=== PATIENT | female | born 1930 | race Caucasian/White ===

== ENCOUNTER 2017-01-14 14:08 | Emergency (ER) | payer OTHER | END 2017-01-14 16:51 | disposition critical access hospital (66) | LOC: ER 14:08 | DX: I13.0 Hypertensive heart and chronic kidney disease with heart failure and stage 1 through stage 4 chronic kidney disease, or unspecified chronic kidney disease (principal); N18.9 Chronic kidney disease, unspecified; I50.9 Heart failure, unspecified; I83.018 Varicose veins of right lower extremity with ulcer other part of lower leg; I25.2 Old myocardial infarction; E78.00 Pure hypercholesterolemia, unspecified; Z79.82 Long term (current) use of aspirin; Z79.899 Other long term (current) drug therapy | CPT/HCPCS: 36415; 96361; 96374; J1940 ==

== ENCOUNTER 2017-01-14 14:08 | Inpatient (IN) | payer OTHER ==
[~2017-01-14] VITALS: Ht 162.6 cm; Wt 49.4 kg
[2017-01-18] MEDS ORDERED: TOPROL XL50 MG PO (15:03)
[2017-01-18] MEDS ORDERED: PRAVACHOL20 MG PO (15:03)
[2017-01-18] MEDS ORDERED: ASPIR 8181 MG PO (15:03)
[2017-01-18] MEDS ORDERED: VITAMIN B-121000 MCG PO (15:04)
[2017-01-18] MEDS ORDERED: ISOSORBIDE MONO30 MG PO (15:04)
[2017-01-18] MEDS ORDERED: LUMIGAN5 ML OU (15:04)
[2017-01-18] MEDS ORDERED: HYDRALAZINE HCL25 MG PO (15:05)
[2017-01-18] MEDS ORDERED: LASIX80 MG PO (15:05)
[2017-01-18] MEDS ORDERED: BACTROBAN15 GM TOP (15:07)
--- NOTE | 2017-01-18 16:28 | NUR ---
1628: PATIENT WAS DISCHARGED AT 1538, HOWEVER, MD'S OFFICE CALLED BACK TO MAKE APPOINTMENT FOR THE PATIENT. APPOINTMENT WAS MADE BY THE CURING FINISHER ROMMEL SHI AND THE PATIENT WAS NOTIFIED OF THE DATE AND TIME OF THE APPOINTMENT AND THE PHONE NUMBER WAS LEFT IN CASE THE PATIENT OR FAMILY HAD ANY FURTHER QUESTIONS.
== END 2017-01-18 15:38 | disposition home or self-care (01) | DRG 291 ==
LOC: ER 14:08 → MED 16:52
PROVIDERS: ADMIT Internal Medicine
DX: I13.0 Hypertensive heart and chronic kidney disease with heart failure and stage 1 through stage 4 chronic kidney disease, or unspecified chronic kidney disease (principal); I50.23 Acute on chronic systolic (congestive) heart failure; N18.4 Chronic kidney disease, stage 4 (severe); N17.9 Acute kidney failure, unspecified; L97.219 Non-pressure chronic ulcer of right calf with unspecified severity; R60.0 Localized edema; I87.2 Venous insufficiency (chronic) (peripheral); E78.5 Hyperlipidemia, unspecified; D63.1 Anemia in chronic kidney disease; I25.10 Atherosclerotic heart disease of native coronary artery without angina pectoris; I25.2 Old myocardial infarction; Z79.82 Long term (current) use of aspirin; Z79.899 Other long term (current) drug therapy; Z80.9 Family history of malignant neoplasm, unspecified; I16.0 Hypertensive urgency; Z95.5 Presence of coronary angioplasty implant and graft; I83.018 Varicose veins of right lower extremity with ulcer other part of lower leg
CPT/HCPCS: 36415; 93306; J1644; J1940